=== PATIENT | male | born 1995 | race Caucasian/White ===

== ENCOUNTER 2023-03-03 01:12 | Emergency (ER) | payer BC ==
[2023-03-03] MEDS ORDERED: Ziprasidone 20 MG CAP ONE ×2 (02:47→02:48)
== END 2023-03-03 03:50 ==
LOC: CSHERS 01:12
DX: G47.00 Insomnia, unspecified (principal); F41.9 Anxiety disorder, unspecified; G47.61 Periodic limb movement disorder; I10 Essential (primary) hypertension
CPT/HCPCS: 99283